=== PATIENT | female | born 1990 | race Caucasian/White ===

== ENCOUNTER 2017-04-24 07:08 | Outpatient (CLI) | payer OTHER ==
[~2017-04-24] VITALS: Ht 165.1 cm; Wt 70.5 kg
[2017-04-24] MEDS ORDERED: BACTRIM 400-801 TAB PO (07:37)
[2017-04-24] MEDS ORDERED: HYDROCODONE-APA1 TAB PO (07:38)
[2017-04-24 07:43] LABS: BASOPHILS 0.3 % (0-2); EOSINOPHILS 7.3 % (0-7); HEMATOCRIT 37.3 % (36.0-48.0); HEMOGLOBIN 12.3 g/dL (12-16); IMMATURE GRANULOCYTES 0.8 % (0-5); LYMPHOCYTES 34.3 % (15-50); MCH 31.1 pg (26.0-34.0); MCV 94.4 fL (80.0-100.0); MONOCYTES 10.6 % (2-11); NEUTROPHILS 46.7 % (40-80); PLATELET COUNT 276 10x3/uL (130-400); RBC 3.95 10x6/uL (4.00-5.40); RDW 12.5 % (11.5-14.5); WBC 10.3 10x3/uL (4.8-10.8)
[2017-04-24 07:45] VITALS: BP 95/57; Ht 165.1 cm; Wt 70.5 kg
[2017-04-24 07:56] LABS: CALC OSMOLALITY 276 mosm/kg (275-300); CALCIUM 8.5 mg/dL (8.5-10.1); CARBON DIOXIDE 29.9 mmol/L (21.0-32.0); CHLORIDE - SERUM 103 mmol/L (98-107); CREATININE - SERUM 0.9 mg/dL (0.6-1.3); GLUCOSE 90 mg/dL (74-106); POTASSIUM - SERUM 4.2 mmol/L (3.5-5.1); SODIUM 138 mmol/L (136-145); UREA NITROGEN 15 mg/dL (7-18); eGFR NON AFRICAN AMERICAN 79 mL/min (90-120)
[2017-04-24 07:58] LABS: APTT 27.1 SECONDS (22.8-39.4); INR 0.94 (0.85-1.17); PROTIME 12.4 SECONDS (11.6-15.0)
[2017-04-24 08:04] LABS: HCG URINE NEGATIVE (NEGATIVE)
--- NOTE | 2017-04-24 11:31 | NUR ---
1030 SEE POST PROCEDURE VITAL SIGNS CHECKLIST FOR VITAL SIGNS
== END 2017-04-24 12:35 | disposition home or self-care (01) ==
LOC: D.OPS 07:08 → D.SP 09:00 → D.OPS 12:35
PROVIDERS: Orthopaedic Surgery; Radiology Diagnostic Radiology
DX: M25.552 Pain in left hip (principal); M25.852 Other specified joint disorders, left hip

== ENCOUNTER 2017-04-30 20:31 | Emergency (ER) | payer OTHER ==
[2017-04-24 07:45] VITALS: BMI 25.8
[~2017-04-30 20:31] MED LIST: BACTRIM 400-801 TAB PO; HYDROCODONE-APA1 TAB PO
[2017-04-30 20:55] LABS: BASOPHILS 0.1 % (0-2); EOSINOPHILS 0.9 % (0-7); HEMATOCRIT 38.9 % (36.0-48.0); HEMOGLOBIN 12.8 g/dL (12-16); IMMATURE GRANULOCYTES 0.6 % (0-5); LYMPHOCYTES 12.9 % (15-50); MCH 31.1 pg (26.0-34.0); MCHC 32.9 g/dL (31.0-37.0); MCV 94.6 fL (80.0-100.0); MEAN PLATELET VOLUME 9.9 fL (7.4-10.4); MONOCYTES 5.2 % (2-11); NEUTROPHILS 80.3 % (40-80); PLATELET COUNT 296 10x3/uL (130-400); RBC 4.11 10x6/uL (4.00-5.40); RDW 12.4 % (11.5-14.5); WBC 14.9 10x3/uL (4.8-10.8)
[2017-04-30 20:58] LABS: APPEARANCE CLEAR (CLEAR); BILIRUBIN NEGATIVE (NEGATIVE); COLOR YELLOW (YELLOW); GLUCOSE NEGATIVE (NEGATIVE); KETONE NEGATIVE (NEGATIVE); LEUKOCYTE ESTERASE TRACE (NEGATIVE); NITRITE NEGATIVE (NEGATIVE); PROTEIN NEGATIVE (NEGATIVE); SPECIFIC GRAVITY 1.025 (1.005-1.020); UROBILINOGEN NORMAL (NORMAL)
[2017-04-30 21:00] LABS: BACTERIA FEW /hpf (NONE SEEN); EPITHELIAL CELLS 0-5 /hpf (0-5)
[2017-04-30 21:18] LABS: ALBUMIN 3.9 g/dL (3.4-5.0); ALKALINE PHOSPHATASE 64 U/L (46-116); ALT (SGPT) 16 U/L (10-68); BILIRUBIN - TOTAL 0.46 mg/dL (0.2-1.3); CALC OSMOLALITY 274 mosm/kg (275-300); CALCIUM 8.8 mg/dL (8.5-10.1); CARBON DIOXIDE 29.1 mmol/L (21.0-32.0); CHLORIDE - SERUM 104 mmol/L (98-107); CREATININE - SERUM 0.9 mg/dL (0.6-1.3); GLUCOSE 105 mg/dL (74-106); PROTEIN - SERUM 7.6 g/dL (6.4-8.2); SODIUM 138 mmol/L (136-145); UREA NITROGEN 9 mg/dL (7-18); eGFR NON AFRICAN AMERICAN 79 mL/min (90-120)
[2017-04-30 21:22] LABS: HCG SERUM NEGATIVE (NEGATIVE)
== END 2017-04-30 21:50 | disposition home or self-care (01) ==
LOC: D.ER 20:31
PROVIDERS: Family Medicine; Nurse Practitioner Family
DX: N39.0 Urinary tract infection, site not specified (principal); R11.2 Nausea with vomiting, unspecified; R35.0 Frequency of micturition; R39.11 Hesitancy of micturition; R39.15 Urgency of urination

== ENCOUNTER → 2017-05-26 19:29 | Outpatient (CLI) | payer OTHER ==
[2017-04-24 07:45] VITALS: BMI 25.8
[2017-05-26 21:17] LABS: ERYTHROCYTE SEDIMENTATION RATE 8 mm/hr (0-20)
== END | disposition home or self-care (01) ==
LOC: D.LABREF 19:29
PROVIDERS: Student in an Organized Health Care Education/Training Program
DX: M79.605 Pain in left leg (principal)